=== PATIENT | female | born 1985 | race Caucasian/White ===

== ENCOUNTER 2021-03-22 11:34 | Emergency (ER) | payer BC ==
[2021-03-22 12:33] LABS: HEMOGLOBIN 14.9 gm/dl (12.3-15.3); RED BLOOD COUNT 5.48 M/UL (4.00-5.10)
[2021-03-22 12:52] LABS: BUN/CREATININE RATIO 17 (0-10)
== END 2021-03-22 15:00 | disposition home or self-care (01) ==
LOC: ER1 11:34
PROVIDERS: Family Medicine
DX: R07.89 Other chest pain (principal); R20.2 Paresthesia of skin; F41.9 Anxiety disorder, unspecified; D69.6 Thrombocytopenia, unspecified; Z88.0 Allergy status to penicillin
CPT/HCPCS: 71045; 80048; 82550; 82553; 83874; 84484; 85025; 85379; 93005; 99285